=== PATIENT | male | born 1970 | race Caucasian/White ===

== ENCOUNTER 2016-10-25 06:30 | Inpatient (IN) | payer OTHER ==
[2016-10-24 13:39] LABS: BASOPHILS 0.7 %; BASOPHILS ABSOLUTE 0.03 10/3/uL (0.0-0.16); EOSINOPHILS 2.2 %; HEMATOCRIT 42.9 % (40.0-51.0); HEMOGLOBIN 15.5 g/dL (13.6-17.8); IMMATURE GRANULOCYTES 0.4 %; IMMATURE GRANULOCYTES ABSOLUTE 0.02 10/3/uL (0.0-0.11); LYMPHOCYTES 29.7 %; LYMPHOCYTES ABSOLUTE 1.32 10/3/uL (0.67-4.30); MEAN CORPUS HGB CONC 36.1 g/dL (32.0-36.0); MEAN CORPUSCULAR HEMOGLOB 35.5 pg (26.0-34.0); MEAN CORPUSCULAR VOLUME 98.2 fL (80-100); MEAN PLATELET VOLUME 9.2 fL (9.2-13.0); MONOCYTES 8.5 %; MONOCYTES ABSOLUTE 0.38 10/3/uL (0.21-1.20); NEUTROPHILS 58.5 %; PLATELET COUNT 185 10/3/uL (150-400); RBC DISTRIBUTION WIDTH 12.6 % (12.0-16.0); RED CELL COUNT 4.37 10/6/uL (4.7-6.1); WHITE BLOOD CELLS 4.5 10/3/uL (4.5-10.5)
[2016-10-24 13:40] LABS: MANUAL DIFF NO %
[2016-10-24 13:44] LABS: PROTIME (NOT ORD) 12.8 SEC (12.0-14.5)
[2016-10-24 13:48] LABS: ASCORBIC ACID (UR NOT ORDER) NEG (NEG); BILIRUBIN, URINE NEGATIVE (NEG); KETONE, URINE NEGATIVE (NEG); LEUKOCYTE ESTERASE(NOT OR NEG (NEG); WBC (NOT ORDERED) (RFLEX) < 1 (0-5)
[2016-10-24 13:56] LABS: A/G RATIO 1.1 (0.7-1.9); ALBUMIN 3.8 G/DL (3.5-5.0); ALKALINE PHOSPHATASE 106 U/L (45-117); BUN (BLOOD UREA NITROGEN) 14 MG/DL (6-23); CALCIUM, SERUM 9.9 MG/DL (8.5-10.4); CHLORIDE, SERUM 107 MMOL/L (96-112); CO2 (CARBON DIOXIDE) 26 MMOL/L (24-34); CREATININE 0.74 MG/DL (0.70-1.30); GFR AFRICAN AMERICAN 127 ML/MIN (>=60); GFR NON AFRICAN AMERICAN 110 ML/MIN (>=60); GLOBULIN 3.4 G/DL (2.5-4.1); GLUCOSE, SERUM 105 MG/DL (60-99); POTASSIUM, SERUM 3.8 MMOL/L (3.5-5.3); SGOT(AST) 17 U/L (5-40); SGPT(ALT) 42 U/L (5-65); SODIUM, SERUM 144 MMOL/L (135-148); TOTAL BILIRUBIN 0.3 MG/DL (0-1.2); TOTAL PROTEIN 7.2 G/DL (6.0-8.5)
--- NOTE | ~2016-10-25 | OP ---
Record Of Operation [facility] [address] [place]. [address] NAME: LOLI GILLETTE : 68 STATUS : ADM IN PAT#: [id number] AGE: 46 ADM/REG DATE : 10/25/16 MR#: [id number] REPORT SERV DATE: 10/25/16 DICTATED BY: DIO RUBALCAVA JR. DATE: 10/25/16 REPORT STATUS : Draft TRANSCRIBED BY: MODL DATE: 10/25/16 DATE OF PROCEDURE: 10/25/2016 PREOPERATIVE DIAGNOSIS: Previous proctocolectomy for rectal cancer, status post previous adjuvant chemotherapy. POSTOPERATIVE DIAGNOSIS: Benign granulomatous lesions x2. NAME OF OPERATION: Bronchoscopy, right thoracoscopy with exploration, right upper lobe posterior segmentectomy, intercostal nerve block. SURGEON: Dr. Dio Rubalcava. RESIDENT SURGEON: Aric Headley M.D. NETBACKUP ADMINISTRATOR: Karlene Fletcher. ANESTHESIA: General endotracheal. FINDINGS: The patient was noted to have no lesions on bronchoscopy. Mucous secretions were evacuated. There was no contraindication to proceeding on with surgery. Upon exploration of the right chest, there was a firm mass that we palpated in the right upper lobe posterior segment. There was a deeper mass to this. We removed the posterior segment of the right upper lobe which frozen section confirmed the 2 masses. They were connected with a linear strand of tissue. Both the lesions were granulomatous on frozen section. There was no evidence of malignancy. Cultures are pending. Final pathology is pending. DETAILS OF OPERATION: After adequate general anesthesia, the patient was intubated. Bronchoscopy was performed as described above. A left-sided double lumen endotracheal tube was then placed. The patient was then positioned in the left lateral decubitus position. The right chest was prepped and draped in a routine sterile fashion. A small incision was made overlying the lower intercostal space. A separate anterior trocar incision was also made. The chest was explored noting the above findings. The lesions were identified. It was felt we needed to take a generous portion of the posterolateral portion of his right upper lobe. The segment was identified. We went down into the fissure between the right upper lobe and right lower lobe and removed this portion using multiple firings of a BG stapler with tissue reinforcements. The bronchial anatomy was not ligated separately. The specimen was placed within a specimen bag and withdrawn through the anterior trocar site. Tissue reinforcement was utilized on the lung parenchyma given the depth of lung tissue that we were removing. There was good reexpansion of the remaining portion of the right upper lobe. Other lobes expanded well. There were no other abnormalities palpated or seen. An intercostal nerve block was performed. A 20-Wolof chest tube was placed. Chest was thoroughly irrigated with sterile water. The trocar sites were closed with running Vicryl sutures. The skin was closed with running monofilament suture. A Dermabond dressing was applied and the procedure was terminated at this point. The patient tolerated the procedure well and was taken back to the recovery room in stable condition. Record Of Operation [facility] [id number] [facility] [place]. [address] NAME: LOLI GILLETTE : 68 STATUS : ADM IN [facility]#: [id number] AGE: 46 ADM/REG DATE : 10/25/16 MR#: [id number] REPORT SERV DATE: 10/25/16 DICTATED BY: DIO RUBALCAVA JR. DATE: 10/25/16 REPORT STATUS : Draft TRANSCRIBED BY: BRIDGETTE DATE: 10/25/16 PAYTON/BRIDGETTE Dio Rubalcava Jr., M.D. / [id number] CC: Nuno Pathak Jr., MD Mark S Womack IV, M.D.
[~2016-10-25 06:30] MED LIST: ASAB PO; CLARIT10 PO; PAXIL40 MG PO; VITAMIN D2000 UNIT PO
[2016-10-25 11:16] LABS: BASOPHILS 0.6 %; BASOPHILS ABSOLUTE 0.03 10/3/uL (0.0-0.16); EOSINOPHILS 1.1 %; EOSINOPHILS ABSOLUTE 0.06 10/3/uL (0.0-0.53); HEMATOCRIT 40.3 % (40.0-51.0); HEMOGLOBIN 14.3 g/dL (13.6-17.8); IMMATURE GRANULOCYTES 0.6 %; IMMATURE GRANULOCYTES ABSOLUTE 0.03 10/3/uL (0.0-0.11); LYMPHOCYTES 17.2 %; MEAN CORPUS HGB CONC 35.5 g/dL (32.0-36.0); MEAN CORPUSCULAR VOLUME 98.5 fL (80-100); MONOCYTES 3.6 %; MONOCYTES ABSOLUTE 0.19 10/3/uL (0.21-1.20); NEUTROPHILS 76.9 %; NEUTROPHILS ABSOLUTE 4.01 10/3/uL (2.02-8.40); PLATELET COUNT 156 10/3/uL (150-400); RBC DISTRIBUTION WIDTH 12.6 % (12.0-16.0); RED CELL COUNT 4.09 10/6/uL (4.7-6.1); WHITE BLOOD CELLS 5.2 10/3/uL (4.5-10.5)
[2016-10-25 11:17] LABS: MANUAL DIFF NO %
[2016-10-25 11:29] LABS: BUN (BLOOD UREA NITROGEN) 17 MG/DL (6-23); CHLORIDE, SERUM 108 MMOL/L (96-112); CO2 (CARBON DIOXIDE) 24 MMOL/L (24-34); CREATININE 0.83 MG/DL (0.70-1.30); GFR AFRICAN AMERICAN 121 ML/MIN (>=60); GFR NON AFRICAN AMERICAN 105 ML/MIN (>=60); GLUCOSE, SERUM 108 MG/DL (60-99); POTASSIUM, SERUM 4.2 MMOL/L (3.5-5.3); SODIUM, SERUM 142 MMOL/L (135-148)
[2016-10-25 11:30] LABS: CALCIUM, SERUM 8.1 MG/DL (8.5-10.4)
[2016-10-26 04:10] LABS: BASOPHILS 0 %; EOSINOPHILS 0 %; HEMATOCRIT 39.8 % (40.0-51.0); IMMATURE GRANULOCYTES 0.2 %; IMMATURE GRANULOCYTES ABSOLUTE 0.03 10/3/uL (0.0-0.11); LYMPHOCYTES 7.2 %; LYMPHOCYTES ABSOLUTE 0.99 10/3/uL (0.67-4.30); MANUAL DIFF NO %; MEAN CORPUS HGB CONC 35.2 g/dL (32.0-36.0); MEAN CORPUSCULAR HEMOGLOB 34.8 pg (26.0-34.0); MEAN PLATELET VOLUME 9.1 fL (9.2-13.0); MONOCYTES 6.2 %; MONOCYTES ABSOLUTE 0.85 10/3/uL (0.21-1.20); NEUTROPHILS 86.4 %; NEUTROPHILS ABSOLUTE 11.88 10/3/uL (2.02-8.40); PLATELET COUNT 168 10/3/uL (150-400); RBC DISTRIBUTION WIDTH 12.5 % (12.0-16.0); RED CELL COUNT 4.02 10/6/uL (4.7-6.1); WHITE BLOOD CELLS 13.8 10/3/uL (4.5-10.5)
[2016-10-26 04:36] LABS: BUN (BLOOD UREA NITROGEN) 13 MG/DL (6-23); CALCIUM, SERUM 8.6 MG/DL (8.5-10.4); CHLORIDE, SERUM 106 MMOL/L (96-112); CO2 (CARBON DIOXIDE) 26 MMOL/L (24-34); CREATININE 0.92 MG/DL (0.70-1.30); GFR AFRICAN AMERICAN 114 ML/MIN (>=60); GFR NON AFRICAN AMERICAN 99 ML/MIN (>=60); GLUCOSE, SERUM 142 MG/DL (60-99); POTASSIUM, SERUM 3.7 MMOL/L (3.5-5.3); SODIUM, SERUM 143 MMOL/L (135-148)
[2016-10-26] MEDS ORDERED: FLOMAX4 PO (08:17)
[2016-10-26] MEDS ORDERED: PCET PO (08:17)
== END 2016-10-26 13:28 | disposition home or self-care (01) | DRG 165 ==
LOC: SDC/OF 06:30 → PACU 10:52 → 5NO 12:32
PROVIDERS: Thoracic Surgery (Cardiothoracic Vascular Surgery)
PROC: 3E0T3BZ Introduction of Anesthetic Agent into Peripheral Nerves and Plexi, Percutaneous Approach (ICD-10-PCS; 2016-10-25)
PROC: 0BBC4ZZ Excision of Right Upper Lung Lobe, Percutaneous Endoscopic Approach (ICD-10-PCS; principal; 2016-10-25 08:15)
DX: J84.10 Pulmonary fibrosis, unspecified (principal); F41.9 Anxiety disorder, unspecified; Z85.048 Personal history of other malignant neoplasm of rectum, rectosigmoid junction, and anus; F17.290 Nicotine dependence, other tobacco product, uncomplicated
CPT/HCPCS: 36415; 71010; 80048; 80053; 81001; 82962; 83036; 85025; 85610; 86850; 86900; 86901; 87015; 87070; 87075; 87102; 87116; 87205; 87641; 88307; 88312; 88331; 93005; 94640; A9270-GY; J0690; J2250; J2270; J2300; J2405; J2710; J2795; J3010

== ENCOUNTER 2016-10-30 08:02 | Emergency (ER) | payer OTHER ==
[~2016-10-30 08:02] MED LIST changes: +FLOMAX4 PO; +PCET PO
[2016-10-30 09:06] LABS: BASOPHILS 0.4 %; BASOPHILS ABSOLUTE 0.03 10/3/uL (0.0-0.16); EOSINOPHILS 1.3 %; ER CBC TAT 0 Hrs 07 Mins; HEMATOCRIT 42.5 % (40.0-51.0); HEMOGLOBIN 15.1 g/dL (13.6-17.8); IMMATURE GRANULOCYTES 1.3 %; LYMPHOCYTES 14.6 %; LYMPHOCYTES ABSOLUTE 1.14 10/3/uL (0.67-4.30); MEAN CORPUS HGB CONC 35.5 g/dL (32.0-36.0); MEAN CORPUSCULAR VOLUME 98.6 fL (80-100); MEAN PLATELET VOLUME 8.9 fL (9.2-13.0); MONOCYTES 10.6 %; MONOCYTES ABSOLUTE 0.83 10/3/uL (0.21-1.20); NEUTROPHILS 71.8 %; NEUTROPHILS ABSOLUTE 5.62 10/3/uL (2.02-8.40); PLATELET COUNT 181 10/3/uL (150-400); RBC DISTRIBUTION WIDTH 12.7 % (12.0-16.0); RED CELL COUNT 4.31 10/6/uL (4.7-6.1); WHITE BLOOD CELLS 7.8 10/3/uL (4.5-10.5)
[2016-10-30 09:07] LABS: MANUAL DIFF NO %
[2016-10-30 09:23] LABS: A/G RATIO 0.9 (0.7-1.9); ALBUMIN 3.3 G/DL (3.5-5.0); ALKALINE PHOSPHATASE 93 U/L (45-117); BUN (BLOOD UREA NITROGEN) 17 MG/DL (6-23); CALCIUM, SERUM 8.5 MG/DL (8.5-10.4); CHLORIDE, SERUM 105 MMOL/L (96-112); CO2 (CARBON DIOXIDE) 25 MMOL/L (24-34); CREATININE 0.82 MG/DL (0.70-1.30); GFR AFRICAN AMERICAN 122 ML/MIN (>=60); GFR NON AFRICAN AMERICAN 105 ML/MIN (>=60); GLOBULIN 3.5 G/DL (2.5-4.1); GLUCOSE, SERUM 96 MG/DL (60-99); POTASSIUM, SERUM 3.8 MMOL/L (3.5-5.3); SGOT(AST) 18 U/L (5-40); SGPT(ALT) 36 U/L (5-65); SODIUM, SERUM 140 MMOL/L (135-148); TOTAL BILIRUBIN 0.6 MG/DL (0-1.2); TOTAL PROTEIN 6.8 G/DL (6.0-8.5)
[2016-10-30 11:01] LABS: ASCORBIC ACID (UR NOT ORDER) NEGATIVE (NEG); BILIRUBIN, URINE NEGATIVE (NEG); ER URINALYSIS TAT 1 Hrs 14 Mins; KETONE, URINE NEGATIVE (NEG); LEUKOCYTE ESTERASE(NOT OR NEG (NEG); NITRITE (URINE) NEG (NEG)
== END 2016-10-30 12:00 | disposition home or self-care (01) ==
LOC: ER 08:02
PROVIDERS: Emergency Medicine
DX: J93.9 Pneumothorax, unspecified (principal); K85.90 Acute pancreatitis without necrosis or infection, unspecified; Z85.038 Personal history of other malignant neoplasm of large intestine; Z79.82 Long term (current) use of aspirin; Z79.899 Other long term (current) drug therapy
CPT/HCPCS: 71275; 74177; 80053; 81001; 83690; 85025; 96374; 99285; J1170; J2405; Q9967